=== PATIENT | male | born 1955 | race Two or more races ===

== ENCOUNTER 2024-11-21 13:17 | Inpatient (IN) | payer MEDICAID ==
[~2024-11-21] VITALS: Ht 170.2 cm; Wt 95.0 kg
--- NOTE | 2024-11-21 13:35 | ELECTROCARDIOGRAPH REPORT ---
[facility], [place] Test Date: 2024-11-21 Test Time: 13:19:24 Pat Name: XOCHILT TORRES Department: EMERGENCY ROOM Room: ED 2 Gender: M Tax Compliance Manager: JESSY : 1955 Requested By: FELECIA MAYEN Order Number: [id number] Reading MD: Dr. Avinash Child Measurements Intervals [place] Rate: 93 P: 59 SD: 211 QRS: 55 QRSD: 106 T: 38 QT: 355 QTc: 442 Interpretive Statements Sinus rhythm Borderline prolonged SD interval Probable left atrial enlargement Electronically Signed On 11-21-2024 17:20:[address] Avinash Child Please click the below link to view image of tracing.
[2024-11-21 14:45] LABS: BASOPHILS % (AUTO) 0.5 % (0-1); HEMATOCRIT 40.6 % (42.0-52.0); LYMPHOCYTES # (AUTO) 1.7 X10'3 (1.1-4.8); LYMPHOCYTES % (AUTO) 35.1 % (21-51); MEAN CORPUSCULAR HEMOGLOBIN 23.8 PG (27.0-31.0); MEAN CORPUSCULAR HGB CONC 32.1 g/dL (33.0-36.5); MEAN CORPUSCULAR VOLUME 74.1 FL (78-98); MEAN PLATELET VOLUME 8.4 FL (7.4-10.4); MONOCYTES # (AUTO) 0.5 X10'3 (0-0.9); MONOCYTES % (AUTO) 9.7 % (2-12); NEUTROPHILS # (AUTO) 2.6 X10'3 (1.8-7.7); NEUTROPHILS % (AUTO) 53.7 % (42-75); PLATELET COUNT 229 X10'3 (140-440); RED BLOOD COUNT 5.47 X10'6 (4.70-6.10); RED CELL DISTRIBUTION WIDTH 15.1 % (11.5-14.5); WHITE BLOOD COUNT 4.9 X10'3 (4.5-11.0)
[2024-11-21 15:05] LABS: ALANINE AMINOTRANSFERASE 22 U/L (12-78); ALBUMIN 3.6 G/DL (3.4-5.0); ALBUMIN/GLOBULIN RATIO 0.8 (1.1-1.5); ALKALINE PHOSPHATASE 74 IU/L (46-116); ANION GAP 8 (8-16); ASPARTATE AMINO TRANSFERASE 18 U/L (10-37); BILIRUBIN,TOTAL 0.3 MG/DL (0.1-1.0); BLOOD UREA NITROGEN 9 MG/DL (7-18); BUN/CREATININE RATIO 9.7 (10.0-20.0); CALCIUM 8.6 MG/DL (8.5-10.1); CHLORIDE 100 MMOL/L (99-107); CREATININE 0.93 MG/DL (0.60-1.10); GLUCOSE 109 MG/DL (70-104); POTASSIUM 3.9 MMOL/L (3.5-5.1); SODIUM 136 MMOL/L (135-145); TOTAL CARBON DIOXIDE 28.1 MMOL/L (24-32); eCRCL 72 ML/MIN; eGFR 81 ML/MIN
[2024-11-21 15:10] LABS: PRO BRAIN NATRIURETIC PEPTIDE < 30 PG/ML (0-125)
[2024-11-21] MEDS ORDERED: AMLO-708 PO (15:18)
[2024-11-21] MEDS ORDERED: TELM40TA8 PO (15:18)
--- NOTE | 2024-11-21 15:19 | RADIOLOGY REPORT ---
CHEST RADIOGRAPH Indication: CP Technique: Single frontal view of the chest was obtained Comparison: None FINDINGS: Lines and Tubes: None Lungs: No focal consolidation. Pleura: No effusion. No pneumothorax. Cardiomediastinal contours: Unremarkable Bones: No acute osseous abnormality. IMPRESSION: No acute cardiopulmonary disease.
--- NOTE | 2024-11-21 15:30 | Physician Documentation ---
History of Present Illness ~ Chief Complaint: Chest Pain Stated Complaint: CP Time Seen by MD: 13:20 Source: patient, family Mode of Arrival: EMS HPI 69-year-old male history of hypertension presenting for 7-10 days of left shoulder discomfort. No history of tobacco use, no alcohol use otherwise healthy no prior history of similar symptoms. He reports pain in his left shoulder described as an achy sensation worsened with movements. No shortness of breath no cough no abdominal pain no fevers no lower extremity edema. No cardiopulmonary history. Evaluation was initially started with human resources records clerk however patient's family arrived and the patient has specifically requested that his family provide interpretation He presented to [facility] where he had chest x-ray performed, left shoulder x-ray, troponin which was elevated at 0.29. EKG nonischemic. He received 324 of aspirin, 0.4 mg sublingual nitroglycerin, 5000 units heparin Medication Reconciliation Allergies: Coded Allergies: No Known Allergies (Unverified , 11/21/24) Scheduled Amlodipine Besylate (Amlodipine Besylate), 1 TAB PO DAILY, (Reported) Telmisartan (Telmisartan), 1 TAB PO DAILY, (Reported) Past Medical History Smoking Status: Never smoker Review of Systems All Other Systems at this time: Reviewed and Negative Constitutional: Denies: fever Respiratory: Denies: shortness of breath Cardiovascular: Denies: chest pain Gastrointestinal: Denies: abdominal pain Physical Exam Vital Signs: Heart Rate: 90, Respiratory Rate: 17, BP: 135/81, Pulse Oximetry: 96, Weight: 95.000 Oxygen Flow Rate: 0 Physical Exam Well-appearing no distress Non diaphoretic Moist mucous membranes No JVD Cardiopulmonary clear to auscultation bilaterally no murmurs no wheezing rhonchi or rales Abdomen soft nontender normal bowel sounds no palpable mass Lower extremity no edema Progress Results/Orders Reviewed/noted all lab results: Yes Results/Orders Orders - FELECIA MAYEN MD Chest,Single View (11/21/24 13:32) Monitor (11/21/24 13:32) Saline Lock (11/21/24 13:32) Oxygen (11/21/24 13:32) Electrocardiogram (11/21/24 13:32) Page Hospitalist (11/21/24 15:37) Fill Out Med Reconciliation (11/21/24 15:37) Completed Orders - FELECIA MAYEN MD Chest,Single View (11/21/24 13:32) Cbc/Diff (11/21/24 13:32) PBNP (11/21/24 13:32) Electrocardiogram (11/21/24 13:32) CMP (11/21/24 13:32) Hs Troponin I W Calculations (11/21/24 13:32) Hs Troponin I W Calculations (11/21/24 15:32) Hs Troponin I W Calculations (11/21/24 16:32) Pt Inr (11/21/24 15:36) PTT (11/21/24 15:36) Heparin 25,000 Unit/250ml Bag (Heparin 2 (11/21/24 15:40) Heparin 10,000 Unit/Ml 1ml (Heparin 10,0 (11/21/24 15:40) No Initial Heparin Drip Bolus (No Initia (11/21/24 15:40) Nitroglycerin Top Ointment (Nitro-Bid Ud (11/21/24 15:40) Message To Nursing (11/21/24 16:10) Atorvastatin Tablet (Lipitor Tablet) (11/21/24 16:25) Hgb A1c (11/21/24 14:28) Vital Signs 11/21/24 11/21/24 11/21/24 13:21 14:25 15:16 Pulse 88 90 Resp 20 15 17 B/P (MAP) 150/86 135/81 (99) Pulse Ox 97 96 O2 Flow Rate 0 Laboratory Tests Test 11/21/24 14:28 11/21/24 15:24 11/21/24 16:22 White Blood Count 4.9 Red Blood Count 5.47 Hemoglobin 13.0 L Hematocrit 40.6 L Mean Corpuscular Volume 74.1 L Mean Corpuscular Hemoglobin 23.8 L Mean Corpuscular Hemoglobin Concent 32.1 L Red Cell Distribution Width 15.1 H Platelet Count 229 Mean Platelet Volume 8.4 Neutrophils (%) (Auto) 53.7 Lymphocytes (%) (Auto) 35.1 Monocytes (%) (Auto) 9.7 Eosinophils (%) (Auto) 1.0 Basophils (%) (Auto) 0.5 Neutrophils # (Auto) 2.6 Lymphocytes # (Auto) 1.7 Monocytes # (Auto) 0.5 Eosinophils # (Auto) 0.0 Basophils # (Auto) 0.0 CBC Comment Prothrombin Time 10.7 INR International Normalized Ratio 1.0 Activated Partial Thromboplast Time 39 H Coagulation Comments Sodium Level 136 Potassium Level 3.9 Chloride Level 100 Carbon Dioxide Level 28.1 Anion Gap 8 Blood Urea Nitrogen 9 Creatinine 0.93 Estimated GFR/1.73 m2 81 BUN/Creatinine Ratio 9.7 L Glucose Level 109 H Hemoglobin A1c 6.1 Calcium Level 8.6 Total Bilirubin 0.3 Aspartate Amino Transf (AST/SGOT) 18 Alanine Aminotransferase (ALT/SGPT) 22 Alkaline Phosphatase 74 Troponin I High Sensitivity 355 *H 355 *H 345 *H Pro-B-Type Natriuretic Peptide < 30 Total Protein 8.0 Albumin 3.6 Globulin 4.4 H Albumin/Globulin Ratio 0.8 L Chemistry Comments Troponin I High Sens Percent Delta 0 2 Troponin I Hi Sens Absolute Change 0 -10 EKG/XRAY/CT/US/VASC/MRI EKG : Additional Comment EKG independently interpreted by myself time 1:19 p.m. indication symptomatic patient normal sinus rhythm with first-degree heart block, normal axis normal intervals no ST or T-wave abnormalities Heart Score: Heart Score Response (Comments) Value History Moderate Suspicious 1 EKG Normal 0 Age >65 2 Risk Factors 1 or 2 risk factors 1 Troponin 1-2 x's Normal limit 1 Total 5 Medical Decision Making Additional info obtained from: family Additional Information Pulmonary embolism, acute coronary syndrome, aortic dissection other causes of chest pain Departure Disposition: ADMITTED INPATIENT Admitted to Inpatient Unit: to hospitalist Impression: Primary Impression: NSTEMI (non-ST elevated myocardial infarction) Additional Impression Text 69-year-old male history of hypertension presenting for 1 week of left shoulder discomfort found to have an NSTEMI at outside emergency department. He was given aspirin and heparin bolus transferred to our facility. His vitals are unremarkable. His EKG was nonischemic. Troponin elevated. Plan for admission for acute coronary syndrome Referrals: NO PRIMARY CARE PROVIDER (PCP) Critical Care Note Total Time (mins): 30 Critical Care Note The very real possibility of a deterioration of this patient's condition required the highest level of my preparedness for sudden, emergent intervention. I provided critical care services, which included medication orders, frequent reevaluations of the patient's condition and response to treatment, ordering and reviewing test results, and discussing the case with various consultants. Excludes time spent performing separately billable procedures. The critical care time associated with the care of the patient was 30 minutes in the management of acute NSTEMI Signature Scribe Signature: jihan Attestation: FELECIA Rivas MD November 21, 2024 15:30
[2024-11-21] MEDS ORDERED: heparin 10,000 units/1 ML INJ IV PRN (15:40)
[2024-11-21] MEDS: HEPARIN DRIP INITAL BOLUS --- DO NOT GIVE/ORDER MC ONE (15:54)
[2024-11-21 16:13] LABS: APTT 39 SECONDS (22-32); PROTHROMBIN TIME 10.7 SECONDS (9.0-12.0)
[2024-11-21] MEDS: nitroGLYCERIN 1gm ointment UD TP ONE (16:20)
[2024-11-21] MEDS: MESSAGE TO NURSING IV ONE ×2 (16:20→23:26)
[2024-11-21] MEDS ORDERED: acetaminophen 650mg rectal suppository RC PRN (16:30)
[2024-11-21] MEDS ORDERED: magnesium sulf-water 4G/100mL 100 ML IV PRN (16:30)
[2024-11-21] MEDS ORDERED: nitroGLYCERIN 0.4mg SUBLingual tab SL PRN ×3 (16:30→17:20)
[2024-11-21] MEDS ORDERED: aminophylline 500mg/20ml vial IV PRN ×2 (16:30→17:20)
[2024-11-21] MEDS ORDERED: HYDROcodone/acetaminophen 10/325mg tab PO PRN (16:30)
[2024-11-21] MEDS ORDERED: magnesium sulf-water 2g/50mL 50 ML IV PRN (16:30)
[2024-11-21] MEDS ORDERED: magnesium Cl slow-release 64mg tablet PO PRN (16:30)
[2024-11-21] MEDS ORDERED: potassium Cl 40MEQ/1/2NS 520ml 520 ML IV PRN (16:30)
[2024-11-21] MEDS ORDERED: mag hydrox/Alum hydrox/simeth 30ml oral suspension PO PRN (16:30)
[2024-11-21] MEDS ORDERED: metoprolol tartrate 1mg/ml inj IV PRN ×2 (16:30→17:20)
[2024-11-21] MEDS ORDERED: ondansetron/PF 4mg/2ml inj IV PRN (16:30)
[2024-11-21] MEDS ORDERED: acetaminophen 325mg tablet PO PRN ×2 (16:30)
[2024-11-21] MEDS ORDERED: magnesium hydroxide 30ml (MOM) UD suspension PO PRN (16:30)
[2024-11-21] MEDS ORDERED: bisacodyl 10mg suppository rectal RC PRN (16:30)
[2024-11-21] MEDS ORDERED: diphenhydrAMINE 25mg capsule PO PRN (16:30)
[2024-11-21] MEDS ORDERED: HYDROcodone/acetaminophen 5mg/325mg tablet PO PRN (16:30)
[2024-11-21] MEDS ORDERED: potassium Cl 20 mEq SR tablet PO PRN ×2 (16:30)
[2024-11-21] MEDS: heparin 25,000 UNIT/250ml bag 250 ML IV PRN (16:33)
[2024-11-21] MEDS: PERFLUTREN PROTEIN-A MICROSPHR (Optison) 0.22 MG/ML 3ML VIAL IV ONE (16:45)
[2024-11-21 17:04] LABS: HEMOGLOBIN A1C 6.1 % (4.5-6.2)
[2024-11-21] MEDS: atorvastatin 20mg tablet PO ONE (17:05)
[2024-11-21] MEDS ORDERED: regadenoson 0.4mg/5ml syringe IV PRN (17:20)
--- NOTE | 2024-11-21 18:07 | HISTORY AND PHYSICAL-Residence ---
History & Physical Providers to CC Resident Creating Document: CLAUDIO YUN RES ~ History of Present Illness Reason for Admit\\Complaint: chest pain History of Present Illness Patient is a 69-year-old male with a history of hypertension and PUD was transferred from [facility] for further evaluation and management of NSTEMI. Patient was presented to the transferring facility for left shoulder discomfort for the past 10 days. He describes the pain as achy in nature, radiating down to his left upper quadrant, aggravated with movement and with no relieving factors. he adds that he was "experiencing an upset stomach-like feeling". He denies any shortness of breath, diaphoresis, nausea, vomiting or fever. Patient lives in [facility] with his family, denies smoking cigarettes, consuming alcohol, or using recreational drugs. His PCP is Dr. Pisano. He came from [facility] seven months ago, and has not had access to primary care doctor. Allergies: Coded Allergies: No Known Allergies (Unverified , 11/21/24) Home Medications Home Medications Active Reported Telmisartan 40 Mg Tablet 1 Tab PO DAILY Amlodipine Besylate 10 Mg Tablet 1 Tab PO DAILY Past Medical History Past Medical History Hypertension Past Surgical History Surgical History Comment No surgeries Past Social History Social History Comment Patient lives in [facility] with his family, denies smoking cigarettes, consuming alcohol, or using recreational drugs. His PCP is Dr. Pisano. He came from [facility] seven months ago, and has not had access to primary care doctor. ROS All Other Systems: Reviewed and Negative ROS As stated above in the HPI, otherwise all systems are reviewed and negative. Constitutional: Denies: fever Respiratory: Denies: shortness of breath Cardiovascular: Denies: chest pain Gastrointestinal: Denies: abdominal pain Exam Vitals: Vital Signs Date Time Temp Pulse Resp B/P (MAP) Pulse Ox O2 Delivery O2 Flow Rate FiO2 11/21/24 16:40 86 17 135/85 (102) 95 0 General: Awake and Alert, no acute distress. HEENT: Conjunctiva pink, Sclera clear, Mucus Membranes moist. Neck: Supple without masses and tenderness. Resp: Unlabored. Lungs clear to auscultation bilaterally. Heart: Regular Rate and rhythm, normal S1 and S2 without murmur, rub or gallop. Abdomen: Soft and non tender no organomegaly Extremities: No cyanosis,clubbing or edema. Skin: Warm and Dry. Diagnostic Data Last Recorded Lab Results: 11/21/24 1428 11/21/24 1428 Diagnostic Data: Laboratory Tests Test 11/21/24 14:28 Prothrombin Time 10.7 SECONDS (9.0-12.0) INR International Normalized Ratio 1.0 INR Activated Partial Thromboplast Time 39 SECONDS (22-32) H Coagulation Comments Advance Care Planning Advanced Care plannin - 30 Minutes Additional Plan Assessment and plan: Patient is a 69-year-old male with a history of hypertension and PUD was transferred from [facility] for further evaluation and management of NSTEMI. Atypical anginal chest pain: NSTEMI - SU Score 3 (13%) mortality Admitted to telemetry floor - Continuous cardiac monitoring Received aspirin 324 mg, NTG SL 0.4 mg, and heparin Pain management - SL NTG Continue Aspirin, atorvastatin, carvedilol, and lisinopril Continue heparin drip Follow A1C, and lipid panel Echo ordered, we will follow Lexiscan to evaluate the need for coronary angiography Cardiology consult in the morning PUD/GERD: Protonix 40 mg IV daily Will benefit from EGD outpatient DVT prophylaxis: On heparin drip Code status: Full code Claudio Yun Internal Medicine Resident Date of Service: November 21, 2024 Billing Provider: BRIAN GARCIA MD,CLAUDIO, RES November 21, 2024 18:07
[2024-11-21 18:45] VITALS: BP 154/88; PULSE 96; RESP 16; TEMP 97.5; O2SAT 96; O2SAT 97
[2024-11-21] MEDS: K and/or MAG REPLACEMENT MC SCH (20:00)
[2024-11-21] MEDS: pantoprazole 40 MG vial IV SCH (20:56)
[2024-11-21] MEDS: normal saline 1000ml 1,000 ML IV SCH (20:56)
[2024-11-21] MEDS: lisinopril 10 MG tablet PO SCH (20:57)
[2024-11-21] MEDS: carVEDilol 3.125mg tablet PO SCH (20:58)
[2024-11-21] MEDS: docusate sod 100mg capsule PO SCH (20:58)
[2024-11-21 22:00] VITALS: BP 102/60; PULSE 88; RESP 17; TEMP 98; O2SAT 95
[2024-11-22] VITALS (24 sets, daily range): BP systolic 107–172; BP diastolic 63–115; PULSE 64–99; RESP 15–20; TEMP 97.3–98.6; O2SAT 91–99
[2024-11-22 03:55] LABS: BILIRUBIN,URINE NEGATIVE (Neg); CLARITY,URINE CLEAR (Clear); COLOR,URINE YELLOW (Yellow); GLUCOSE, URINE NEGATIVE (Neg); KETONES,URINE NEGATIVE (Neg); LEUKOCYTE ESTERASE ,URINE NEGATIVE (Neg); NITRITES, URINE NEGATIVE (Neg); OCCULT BLOOD,URINE NEGATIVE (Neg); PROTEIN,URINE NEGATIVE (Neg); UROBILINOGEN,URINE 0.2 E.U/dL (0.2-1.0)
[2024-11-22 03:57] LABS: UA COLLECTION TYPE CLN CATCH MIDSTREAM
[2024-11-22 05:43] LABS: BASOPHILS # (AUTO) 0.1 X10'3 (0-0.2); BASOPHILS % (AUTO) 0.6 % (0-1); EOSINOPHILS # (AUTO) 0.1 X10'3 (0-0.9); EOSINOPHILS % (AUTO) 1.7 % (0-6); HEMATOCRIT 36.9 % (42.0-52.0); LYMPHOCYTES # (AUTO) 2.4 X10'3 (1.1-4.8); LYMPHOCYTES % (AUTO) 30.8 % (21-51); MEAN CORPUSCULAR HGB CONC 32.4 g/dL (33.0-36.5); MEAN CORPUSCULAR VOLUME 74.1 FL (78-98); MEAN PLATELET VOLUME 8.7 FL (7.4-10.4); MONOCYTES # (AUTO) 0.8 X10'3 (0-0.9); MONOCYTES % (AUTO) 9.9 % (2-12); NEUTROPHILS # (AUTO) 4.5 X10'3 (1.8-7.7); PLATELET COUNT 221 X10'3 (140-440); RED BLOOD COUNT 4.99 X10'6 (4.70-6.10); WHITE BLOOD COUNT 7.9 X10'3 (4.5-11.0)
[2024-11-22 05:54] LABS: ANION GAP 8 (8-16); BLOOD UREA NITROGEN 10 MG/DL (7-18); BUN/CREATININE RATIO 8.8 (10.0-20.0); CALCIUM 8.2 MG/DL (8.5-10.1); CHLORIDE 103 MMOL/L (99-107); CHOL/HDL RATIO 3.1 (0.00-4.99); CHOLESTEROL 195 MG/DL (0-200); CREATININE 1.14 MG/DL (0.60-1.10); GLUCOSE 109 MG/DL (70-104); HDL CHOLESTEROL 62 MG/DL (35-60); LDL CHOLESTEROL 121 MG/DL (50-100); MAGNESIUM 2.3 MG/DL (1.5-2.4); PHOSPHORUS 3.7 MG/DL (2.3-4.5); POTASSIUM 3.8 MMOL/L (3.5-5.1); SODIUM 138 MMOL/L (135-145); TOTAL CARBON DIOXIDE 27.1 MMOL/L (24-32); TRIGLYCERIDES 62 MG/DL (20-135); eCRCL 59 ML/MIN; eGFR 64 ML/MIN
[2024-11-22] MEDS: MESSAGE TO NURSING IV ONE ×2 (06:56→12:50)
[2024-11-22] MEDS: atorvastatin 20mg tablet PO SCH (07:11)
[2024-11-22] MEDS: aspirin 81mg, enteric-coated 1 TAB TABLET.DR PO SCH (07:22)
[2024-11-22] MEDS ORDERED: aspirin 81mg, enteric-coated 1 TAB TABLET.DR PO SCH (09:00)
[2024-11-22] MEDS: regadenoson 0.4mg/5ml syringe IV PRN (09:45)
--- NOTE | 2024-11-22 12:25 | RADIOLOGY REPORT ---
Reason for study/Clinical History: cp Comparison Study: None Myocardial Perfusion Study with SPECT Technique: The patient received an intravenous injection of 8.6 mCi of technetium-99m Sestamibi whi vidya at rest. After a short delay, SPECT tomographic images of the heart were obtained. The patient rosie blair went to the stress lab where they received an intravenous Lexiscan utilizing standard protocol. 32.0 mCi of technetium-99m Sestamibi was injected intravenously immediately after the start of the infusion. Gated SPECT tomographic images of the heart were acquired and processed. Findings: Rotating planar images show no significant attenuation artifact. The left ventricular size is within normal limits. Reversible defect is present in the inferior/ lateral wall. The left ventricular ejection fraction is 61%. (normal greater than 50%) Impression: Reversible defect is present in the inferior/ lateral wall. This may represent artifact versus ischem ia. Clinical correlation advised. The left ventricular ejection fraction is 61%.
[2024-11-22] MEDS ORDERED: LIDOcaine 1% (10mg/ml) 2ml vial ONE (14:32)
[2024-11-22] MEDS ORDERED: heparin 1,000unit/ml 10ml vial 10 ML ONE ×2 (14:33→15:34)
[2024-11-22] MEDS ORDERED: midazolam 1 mg/ML 2ml injection ONE (14:33)
[2024-11-22] MEDS ORDERED: iohexol 350MG/ML 100ml bottle IV ONE ×2 (14:33→15:30)
[2024-11-22] MEDS ORDERED: fentaNYL/PF 50MCG/1 ML 2ML syringe ONE (14:33)
[2024-11-22] MEDS ORDERED: nitroGLYCERIN 500mcg/5mL D5W 5 ML IV ONE (14:33)
[2024-11-22] MEDS ORDERED: verapamil 2.5 mg/ml inj IV ONE (14:33)
[2024-11-22] MEDS ORDERED: LIDOcaine 1% 30ml preserv. free vial ONE (15:02)
[2024-11-22] MEDS ORDERED: ticagrelor 90mg tablet ONE (15:34)
--- NOTE | 2024-11-22 15:40 | CONSULTATION REPORT ---
Consult Providers to CC CC: JEFFERSON ACOSTA MD Consult Consultation Chief complaint: I was emergently asked to review the patient's coronary angiography in the cardiac catheterization lab and assess the feasibility and advisability of surgical coronary revascularization versus PCI. History of present illness: This 69-year-old man of [place] descentwith early diabetes, who has no identifiable primary care provider, presented with stuttering angina yesterday and ruled in for non ST segment elevation infarction with mildly elevated, but flat, high sensitivity troponins. He underwent a stress test today which showed inferolateral ischemia and Dr. Jefferson Acosta brought the patient to the cardiac catheterization lab. He identified a chronic total occlusion at the junction of the proximal and middle thirds of the right coronary artery and a high-grade stenosis jeopardizing the mid lateral and posterolateral circumflex obtuse marginal system. The left anterior descending coronary artery does not have a proximal for even midvessel stenosis but there is plaque in the distal portion of the vessel culminating in an apical high-grade stenosis. Allergies, medications, Past medical history, family history, personal & social history were reviewed as charted in the EMR. Review of systems could not be performed because the patient is currently on the cardiac catheterization table, nor could a physical examination be performed. Assessment and plan: 1. Because of the apical high-grade stenosis, any graft placed just proximal to that will not have any runoff in either direction. Moreover, in the absence of a high-grade proximal left anterior descending coronary stenosis, the indications and goals for surgical coronary revascularization are less defined. 2. As stenting of the circumflex coronary system appears feasible to Dr. Acosta, this will not only address the area of inducible ischemia identified with stress testing, it will additionally support [id number] collaterals to the occluded right coronary system. 3. The distal/apical left anterior descending coronary disease can be treated medically. I very much appreciate this consultation opportunity. Visit Coding Cardiology Date of Service: November 22, 2024 Billing Provider: GABRIELA SKELTON Jr., MD Cardiology Evaluation and Tiffany: CONSULT ONLY Cardiology Consultation Codes: 50554-[id number] CONSULT <45MIN GABRIELA SKELTON Jr., MD November 22, 2024 15:40
[2024-11-22] MEDS ORDERED: atropine 0.1mg/ml 10ml syringe ONE (15:42)
--- NOTE | 2024-11-22 16:32 | CARDIAC CATH REPORT ---
Post Cath Report Providers to CC CC: JEFFERSON ACOSTA MD ~ Date of Procedure: November 22, 2024 Pre-Procedure Diagnosis: NSTEMI History: AMI, Htn CCS Anginal Class: IV [facility] Functional Class: II Procedure Preformed: Left Heart Cath, PTCA / Stent Post Procedure DX Same?: Yes Findings Findings: Procedure Date: 11/22/24 Procedure(s): 1. Selective Right and Left Coronary Angiography 2. Percutaneous coronary intervention of the left circumflex coronary artery with two overlapping stents, a 3.0 mm x 38 mm Dick Shoshone and a 3.0 mm x 18 mm Vanderwagen Shoshone 3. Right Femoral Angiography 4. PerClose Closure Device placement to achieve hemostasis 5. Conscious Sedation Monitoring for 60 minutes Pre-Cardiac Catheterization Diagnosis: NSTEMI Post-Cardiac Catheterization Diagnosis: Severe triple vessel disease Community Specialist(s): Jefferson Acosta MD ([facility]) Indication: Mr. Hagen is a 69 year old [place] male with a past medical history significant for hypertension and pre-diabetes who presented with chest/neck/arm pain that had been ongoing for about 1 week. He was transferred from an outside facility due to an NSTEMI. His Trop HS was noted to be in the 300s. He underwent a lexiscan stress test that showed inferior and lateral reversible ischemia. The patient is being brought to the cardiac hot plate plywood press laborer for further evaluation of their coronary anatomy with a left heart cath and possible percutaneous coronary intervention. Procedure Details: Informed consent was obtained. Both groins were prepped and draped in the usual manner. The right femoral area was anesthetized with lidocaine, 2%, local infiltration. The right femoral artery was entered with a Cook needle using the modified Seldinger technique and a 6 F sheath was inserted. Catheter exchanges were made over the wire. Selective left and right coronary angiograms were obtained in multiple projections with JL4 and JR4 catheters respectively. Pressures were recorded in the LV and aorta. Following the diagnostic procedure, the CT Surgeon, Dr. Mccoy, was contacted and came to the hot plate plywood press laborer to review the films. It was felt that his LAD lesion was too distal for any graft and since there was no proximal or mid LAD lesion, it was felt that the patient would best be served by PCI. Given the fact that the patient had only inferior/inferolateral reversible ischemia, it was felt that the LCx would be stented and since the RCA was a HONING JOB SETTER, that would be left for medical management. A XBC 4.0 guiding catheter was used to selectively cannulate the left coronary artery. A Lumate Runthrough wire was advanced through the lesion and parked distal to the lesion. The lesion was predilated with 2.5 mm x 20 mm Trek balloon at 12 karan. A 3.0 mm x 38 mm Vanderwagen Shoshone drug eluting stent was placed across the mid to distal aspect of the lesion and deployed at 13 karan. A 3.0 mm x 18 mm Vanderwagen Shoshone drug eluting stent was then positioned across the proximal portion of the lesion with the distal aspect of the stent overlapping the proximal portion of the recently deployed stent. The stent was deployed at high pressure of 16 karan and then the stent balloon was used to post dilated the overlap section of stent at 16 karan. The lesion was reduced from 80-90% to 0%. Pre-intervention SU Flow was noted to be SU 2. Post intervention the SU flow was noted to be SU 3. The patient tolerated the procedure well. There were no complications. Anticoagulation used during procedure was with heparin. At the termination of the procedure, all the wires and catheters were removed. A femoral angiography was performed to assess the access site and suitability for a closure device to achieve hemostasis. It was determined that the entry point was suitable for a closure device. A Perclose device was used to achieve hemostasis. The patient was given conscious sedation and monitored for a total of 60 minutes. Catheters Used: 1. 6 Slovak XBC 4 guide 2. 6 Slovak JL4 3. 6 Slovak JR4 All catheters were exchanged over the wire. CORONARY ANGIOGRAM: Left Main: Patent vessel that distally bifurcates into a LAD and LCx Left Anterior Descending: Moderate caliber vessel. The proximal and mid LAD has mild luminal irregularities. There is noted severe disease of the moderate caliber diagonal branch. The distal and apical LAD have noted severe (80-90%) diffuse disease. The septals of the LAD supply left to right collaterals to the distal RCA. Left Circumflex: Moderate to large caliber vessel with severe (80-90%) diffuse disease from the proximal to mid portion of the vessel. Right Coronary Artery: Dominant vessel that has a noted HONING JOB SETTER in the mid portion of the vessel. There are noted bridging collaterals from the right to right and also left to right collaterals that fills the distal RCA. Left Ventricular Angiography: Not performed. Echo showed an EF of 65-70%. Hemodynamics: Please refer to hot plate plywood press laborer flow sheet. Valve Disease: None per echo. Percutaneous Coronary Intervention (PCI): A XBC 4.0 guiding catheter was used to selectively cannulate the left coronary artery. A Lumate Runthrough wire was advanced through the lesion and parked distal to the lesion. The lesion was predilated with 2.5 mm x 20 mm Trek balloon at 12 karan. A 3.0 mm x 38 mm Dick Shoshone drug eluting stent was placed across the mid to distal aspect of the lesion and deployed at 13 karan. A 3.0 mm x 18 mm Vanderwagen Shoshone drug eluting stent was then positioned across the proximal portion of the lesion with the distal aspect of the stent overlapping the proximal portion of the recently deployed stent. The stent was deployed at high pressure of 16 karan and then the stent balloon was used to post dilated the overlap section of stent at 16 karan. The lesion was reduced from 80-90% to 0%. Pre- intervention SU Flow was noted to be SU 2. Post intervention the SU flow was noted to be SU 3. The patient tolerated the procedure well. There were no complications. Anticoagulation used during procedure was with heparin. Complications: None Closure Device: Perclose Impression: 1. Right dominant system. 2. Severe triple vessel disease as described above with a HONING JOB SETTER of the RCA, severe diffuse disease of the proxiomal to mid LCx, and severe disease of the distal/apical LAD. 3. Successful PCI of the LCx with two overlapping Vanderwagen Shoshone stents, a 3.0 mm x 18 mm proximally and a 3.0 mm x 38 mm distally. 4. Conscious sedation monitoring for 60 minutes. Discussion/Recommendations: -Following the diagnostic procedure, the CT Surgeon, Dr. Mccoy, was contacted and came to the hot plate plywood press laborer to review the films. It was felt that his LAD lesion was too distal for any graft and since there was no proximal or mid LAD lesion, it was felt that the patient would best be served by PCI. Given the fact that the patient had only inferior/inferolateral reversible ischemia, it was felt that the LCx would be stented and since the RCA was a HONING JOB SETTER, that would be left for medical management. -Routine post cath orders. -Transfer to the floor. -Dual antiplatelet therapy with Brilinta and ASA for at least one year, then ASA indefinitely. -Continue with medical management. -Aggressive lifestyle and risk factor modifications were stressed to the patient in detail. Dominance: Right Moderate Sedation: Yes Complications: None Estimated Blood Loss: less than 5 cc Treatment Plan: PTCA / STENT PCI Patients Priority: Urgent Condition on leaving Prototype Deicer Assembler: Stable JEFFERSON ACOSTA MD November 22, 2024 16:32
--- NOTE | 2024-11-22 16:37 | CONSULTATION REPORT ---
CATHYGEOVANY Mikel COMMERCIAL PORTFOLIO MANAGER 11/22/24 1637: History of Present Illness Providers to CC CC: MARTHA CARABALLO MD ~ Reason for Admit\Admit Dx: Cardiology consultation History of Present Illness This is a 69-year-old male who presented with chest pain. He does not speaking Uzbek however speaks greenlandic and able to speak with Dr. Acosta directly. This past medical history that is significant for hypertension. Denies other medical history. Denies past surgeries. He states chest pain in his left chest that radiates down his left arm. Pain ongoing for about 10 days. No shortness a breath. Allergies: Coded Allergies: No Known Allergies (Unverified , 11/21/24) Home Medications Home Medications Active Reported Telmisartan 40 Mg Tablet 1 Tab PO DAILY Amlodipine Besylate 10 Mg Tablet 1 Tab PO DAILY Past Medical History Medical History Comment Hypertension Past Surgical History Surgical History Comment Noncontributory Past Social History Social History Comment Does not smoke, drink alcohol or use drugs. Physical Exam Last Vital Signs Recorded: RN Vital Signs have been reviewed: Yes, Temperature: 98.6, Source: Oral, Heart Rate: 68, Respiratory Rate: 20, BP: 143/115, Pulse Oximetry: 97, Weight: 95.000 Physical Exam General: Awake, alert, oriented. No apparent distress Neck: Supple. Normal range of motion. No JVD Respiratory: Lungs are clear to auscultation bilaterally. No respiratory distress. Chest: Normal shape and size. No accessory muscle use. Cardiovascular: Regular rate and rhythm. S1-S2. No murmur, gallop, rub. Extremities: No lower extremity edema, cyanosis or clubbing. Neurologic: Alert and oriented x4. Nonfocal Psychiatric: Normal mood and affect. Skin: Normal color. Warm and dry. Review of Systems ROS Review of systems negative except documented in HPI. Results Echocardiogram Echocardiogram Preliminary echocardiogram with LVEF 70%. No wall motion abnormalities. Cardiac Stress Test Cardiac Stress Test Ordering Physician: BRIAN GARCIA MD Exam: NM MYRTLE SCAN Reason for study/Clinical History: cp Comparison Study: None Myocardial Perfusion Study with SPECT Technique: The patient received an intravenous injection of 8.6 mCi of technetium-99m Sestamibi while at rest. After a short delay, SPECT tomographic images of the heart were obtained. The patient then went to the stress lab where they received an intravenous Lexiscan utilizing standard protocol. 32.0 mCi of technetium-99m Sestamibi was injected intravenously immediately after the start of the infusion. Gated SPECT tomographic images of the heart were acquired and processed. Findings: Rotating planar images show no significant attenuation artifact. The left ventricular size is within normal limits. Reversible defect is present in the inferior/ lateral wall. The left ventricular ejection fraction is 61%. (normal greater than 50%) Impression: Reversible defect is present in the inferior/ lateral wall. This may represent artifact versus ischemia. Clinical correlation advised. The left ventricular ejection fraction is 61%. Electronically Signed by:LEMUEL MOHAMUD MD Date & Time: 11/22/24 1223 Diagram Lab Result Diagram: 11/22/24 0505 11/22/24 0505 Assessment/Plan Additional Plan This is a 69-year-old male who presented with chest pain. The following is his problem list: NSTEMI Stress test with inferolateral defect Discussed cardiac catheterization. Risks, benefits and alternatives reviewed. Patient and his family had the opportunity to ask questions and wished to proceed. He has been taken with Dr. Acosta. --start metoprolol 25 mg daily --start high-intensity statin. LDL is 121. Goal LDL less than 55. --aspirin 81 mg daily --antiplatelet agent per Dr. Acosta Supervising MD Supervising Physician: KRYSTYNA Samayoa MD 11/22/242002: History of Present Illness Providers to CC CC: MARTHA CARABALLO MD Allergies: Coded Allergies: No Known Allergies (Unverified , 11/21/24) Results Diagram Lab Result Diagram: 11/22/24 0505 11/22/24 0505 Assessment/Plan Additional Plan Patient seen and examined. Agree with note by COMMERCIAL PORTFOLIO MANAGER. The patient was admitted with an NSTEMI (high sensitivy trops of 300) and a positive stress test with noted inferior and lateral wall reversible ischemia. Coronary angiography was performed and showed severe TVCAD with a DISABILITY BENEFITS SPECIALIST of the RCA, severe diffuse and long segment disease of the LCx and severe distal and apical LAD disease. Given the severe TVCAD, a CT Surgery consultation was obtained and the films were reviewed by the CT Surgeon. Given that the LAD disease was distal and apical, it was felt that the patient would best be served with PCI. As the ischemia was in the RCA/LCX territory, the patient underwent PCI of the LCx with a total of 2 stents and the RCA will be treated medically as it is a DISABILITY BENEFITS SPECIALIST that is well collateralized. The findings of the cath and intervention were discussed in detail with the patient and his attendants. Would continue with DAPT with ASA and Brilinta for 1 year. Also continue with high dose statin and further lifestyle and risk factor modification. Pending clinical stability, he can be discharged to home in the AM with outpatient cardiology follow-up. GEOVANY MORGAN NP November 22, 2024 16:37 KRYSTYNA ACOSTA MD November 22, 2024 20:03
--- NOTE | 2024-11-22 16:38 | CARDIOLOGY REPORT ---
APPROVED REPORT EXAM: Comprehensive 2D, Doppler, and color-flow Echocardiogram. Patient Location: ED2 Blood Pressure: 135/85 mmHg Heart Rate: 93 bpm Rhythm: NSR Indications Chest Pain SOB Buying Intern unknown No previous echo 2D Dimensions LA Diam4.4 cm IVSd 1.2 (0.7-1.1cm) LVDd 4.5 cm PWd 1.2 (0.7-1.1cm) IVSs 1.7 (0.8-1.2cm) LVDs 2.7 (2.5-4.0cm) Aortic Root(2D) 3.3 cm PWs 1.6 (0.8-1.2cm) LVOT Diameter 2.12 (1.8-2.4cm) LVEF(%) 71.7 (>50%) Ao Asc Diam.3.64 cmIVC 12.28 mm FS (%) 40.7 % SV 65.6 ml CO 6.6 L/min M-Mode Dimensions MV EPSS 0.4 (<0.5cm) Aortic Valve AoV Peak Dane. 167.4 cm/s AoV VTI 26.1 cm AO Peak GR. 11.2 mmHg AO Mean GR. 6 mmHg LVOT VTI 21.72 cm LVOT Peak Dnae. 120.9 cm/s SARAVANAN(VTI)/BSA 2.94 cm2/m2 SARAVANAN (VTI) 2.94 cm2 Mitral Valve MV E Velocity 55.1 cm/s MV Peak Gr. 2 mmHg MV DECEL TIME 156 ms MV A Velocity 94.8 cm/s MV PHT 56 ms E/A Ratio 0.6 MVA (PHT) 3.93 cm2 MV VMax68.3 cm/s TDI Medial E' P. V 9.59 cm/s E/Medial E' 5.7 Tricuspid Valve RAP ESTIMATE 10 mmHg Pulmonary Vein S1 Velocity 48.8 cm/s D2 Velocity 33.9 cm/s PVa Lswnkmba51.4 cm/s PVa Otragstf11 msec LEFT VENTRICLE LV is normal in size with mild concentric hypertrophy. Overall systolic function is normal. LVEF is 7 0%. RIGHT VENTRICLE RV is normal size and function. ATRIA Left atrium is mildly dilated. AORTIC VALVE Trileaflet AV appears sclerotic without stenosis. Mild insufficiency. MITRAL VALVE MV is thickened with mild annular calcification and no stenosis. Trace mitral regurgitation. TRICUSPID VALVE The tricuspid valve is normal in structure. Trace tricuspid regurgitation. PULMONIC VALVE The pulmonary valve is normal in structure. Trace pulmonic regurgitation. GREAT VESSELS The aortic root is normal in size. Ascending aorta measured at 3.6 cm. The IVC is normal in size and collapses >50% with inspiration. PERICARDIUM There is no pericardial effusion. Other Information Study Quality: Adequate Conclusion LV is normal in size with mild concentric hypertrophy. Overall systolic function is normal. LVEF is 7 0%. RV is normal size and function. Left atrium is mildly dilated. Trileaflet AV appears sclerotic without stenosis. Mild insufficiency. MV is thickened with mild annular calcification and no stenosis. The tricuspid valve is normal in structure. Trace tricuspid regurgitation. The pulmonary valve is normal in structure. Trace pulmonic regurgitation. Ascending aorta measured at 3.6 cm. There is no pericardial effusion.
[2024-11-22] MEDS ORDERED: ASPI-1265 PO (16:46)
[2024-11-22] MEDS ORDERED: TICA90TA2 PO (16:54)
[2024-11-22] MEDS ORDERED: ATOR-2 PO (16:54)
[2024-11-22] MEDS: normal saline 1000ml 1,000 ML IV SCH (17:08)
--- NOTE | 2024-11-22 18:47 | PROGRESS NOTE- Residence ---
Progress Note - Resident Providers to CC Resident Creating Document: CLAUDIO YUN RES ~ Antibiotic Timeout Antibiotic Ordered?: No Subjective Patient was seen and examined at bedside. He does not report any pain. Underwent Lexiscan, coronary angiography, and stent placement. Objective Vital Signs Date Time Temp Pulse Resp B/P (MAP) Pulse Ox O2 Delivery O2 Flow Rate FiO2 11/22/24 18:05 20 135/75 (95) 95 Room Air 11/22/24 17:35 64 11/22/24 16:20 98.1 11/22/24 11:47 0 21 General: Awake and Alert, no acute distress. HEENT: Conjunctiva pink, Sclera clear, Mucus Membranes moist. Neck: Supple without masses and tenderness. Resp: Unlabored. Lungs clear to auscultation bilaterally. Heart: Regular Rate and rhythm, normal S1 and S2 without murmur, rub or gallop. Abdomen: Soft and non tender no organomegaly Extremities: No cyanosis,clubbing or edema. Skin: Warm and Dry. Result Diagram: 11/22/24 0505 11/22/24 0505 Coagulation Studies Laboratory Tests Test 11/21/24 14:28 11/22/24 11:18 11/22/24 15:58 Prothrombin Time 10.7 SECONDS (9.0-12.0) INR International Normalized Ratio 1.0 INR Activated Partial Thromboplast Time 39 SECONDS (22-32) H APTT (Heparin Protocol) 56 SECONDS (45-60) Coagulation Comments Activated Clotting Time 251 SEC (101-148) H Advance Care Planning Advanced Care plannin - 30 Minutes Assessment Assessment Patient is a 69-year-old male with a history of hypertension and PUD was transferred from [facility] for further evaluation and management of NSTEMI. Plan Plan NSTEMI - SU Score 3 (13%) mortality CAD, status post stenting Admitted to telemetry floor - Continuous cardiac monitoring Received aspirin 324 mg, NTG SL 0.4 mg, and heparin Pain management - SL NTG Continue Aspirin, atorvastatin, carvedilol, and lisinopril Continue heparin drip Follow A1C, and lipid panel Echo ordered, we will follow Lexiscan to evaluate the need for coronary angiography Cardiology consult in the morning Prediabetes: A1C 6.1 Diet & lifestyle modification discussed with patient PUD/GERD: Protonix 40 mg IV daily Will benefit from EGD outpatient November 22, 2024: Patient underwent Lexiscan which revealed reversible defect is present in the inferior/ lateral wall. Cardiology consulted, patient underwent coronary angiography. Two stents placed at left circumflex coronary artery Ticagrelor 90 mg p.o. twice daily added to current GDMT DVT prophylaxis: On heparin drip Code status: Full code Claudio Yun Internal Medicine Resident Date of Service: November 22, 2024 Billing Provider: BRIAN GARCIA MD,CLAUDIO, RES November 22, 2024 18:47
[2024-11-22] MEDS ORDERED: ticagrelor 90mg tablet PO SCH (20:00)
[2024-11-22] MEDS: ticagrelor 90mg tablet PO SCH (21:59)
[2024-11-23 02:00] VITALS: BP 126/61; PULSE 65; RESP 16; TEMP 97.7; O2SAT 96
[2024-11-23 06:00] VITALS: BP 130/75; PULSE 69; RESP 16; TEMP 98; O2SAT 98
[2024-11-23 06:50] LABS: BASOPHILS % (AUTO) 0.5 % (0-1); EOSINOPHILS # (AUTO) 0.1 X10'3 (0-0.9); EOSINOPHILS % (AUTO) 0.8 % (0-6); HEMATOCRIT 37.3 % (42.0-52.0); HEMOGLOBIN 12.2 g/dl (14.0-17.9); LYMPHOCYTES # (AUTO) 1.9 X10'3 (1.1-4.8); LYMPHOCYTES % (AUTO) 22.4 % (21-51); MEAN CORPUSCULAR HEMOGLOBIN 24.2 PG (27.0-31.0); MEAN CORPUSCULAR HGB CONC 32.7 g/dL (33.0-36.5); MEAN PLATELET VOLUME 8.6 FL (7.4-10.4); MONOCYTES # (AUTO) 0.9 X10'3 (0-0.9); MONOCYTES % (AUTO) 10.3 % (2-12); NEUTROPHILS # (AUTO) 5.7 X10'3 (1.8-7.7); PLATELET COUNT 212 X10'3 (140-440); RED BLOOD COUNT 5.05 X10'6 (4.70-6.10); RED CELL DISTRIBUTION WIDTH 14.9 % (11.5-14.5); WHITE BLOOD COUNT 8.7 X10'3 (4.5-11.0)
[2024-11-23 07:07] LABS: ALBUMIN 3.1 G/DL (3.4-5.0); ANION GAP 7 (8-16); BLOOD UREA NITROGEN 10 MG/DL (7-18); BUN/CREATININE RATIO 8.6 (10.0-20.0); CALCIUM 8.4 MG/DL (8.5-10.1); CHLORIDE 104 MMOL/L (99-107); CREATININE 1.16 MG/DL (0.60-1.10); GLUCOSE 99 MG/DL (70-104); MAGNESIUM 2.1 MG/DL (1.5-2.4); PHOSPHORUS 3.6 MG/DL (2.3-4.5); POTASSIUM 3.6 MMOL/L (3.5-5.1); SODIUM 138 MMOL/L (135-145); TOTAL CARBON DIOXIDE 26.6 MMOL/L (24-32); eCRCL 58 ML/MIN; eGFR 63 ML/MIN
[2024-11-23 08:00] VITALS: RESP 16; O2SAT 98
[2024-11-23 11:00] VITALS: BP 115/64; PULSE 67; RESP 13; TEMP 97.8; O2SAT 99
[2024-11-23] MEDS ORDERED: AMLO-708 PO (14:10)
[2024-11-23] MEDS ORDERED: PANT-47 PO (14:10)
[2024-11-23] MEDS ORDERED: TELM40TA8 PO (14:10)
[2024-11-23] MEDS ORDERED: ISOS30TA84 PO (14:13)
[2024-11-23 15:00] VITALS: BP 139/64; PULSE 66; RESP 14; TEMP 98.1; O2SAT 98
--- NOTE | 2024-11-23 17:00 | DISCHARGE SUMMARY-Residence ---
Discharge Summary Providers to CC Resident Creating Document: CLAUDIO RUDOLPH, RES ~ Discharge Summary Admission Diagnosis: NSTEMI Hospital Course DATE OF ADMISSION: November 21, 2024 DATE OF DISCHARGE: November 23, 2024 Discharge Diagnosis\\Comment: NSTEMI CAD, status post stenting x2 Prediabetes: PUD/GERD Operations\\Procedures: 1. Selective Right and Left Coronary Angiography 2. Percutaneous coronary intervention of the left circumflex coronary artery with two overlapping stents, a 3.0 mm x 38 mm [place] and a 3.0 mm x 18 mm [place] 3. Right Femoral Angiography 4. PerClose Closure Device placement to achieve hemostasis 5. Conscious Sedation Monitoring for 60 minutes Consultants: Dr. Hitchcock Complications: None Condition on DC: Stable New Medications: Aspirin (Aspirin) 81 Mg Tab.chew 1 TAB PO DAILY for 30 Days, #30 TAB 6 Refills Atorvastatin Calcium (Atorvastatin Calcium) 80 Mg Tablet 1 TAB PO DAILY for 30 Days, #30 TAB 6 Refills Isosorbide Mononitrate (Isosorbide Mononitrate Er) 30 Mg Tab.er.24h 1 TAB PO DAILY for 30 Days, #30 TAB Pantoprazole Sodium (PROTONIX tablet) 40 Mg Tablet.dr 40 MG PO DAILY for 30 Days, #30 TAB.SR Ticagrelor (Brilinta) 90 Mg Tablet 90 MG PO BID for ACUTE CORONARY SYNDROME/NSTEMI, #60 TAB 6 Refills Do not stop medication unless instructed by prescriber. Must be on aspirin as well. Continued Medications: Amlodipine Besylate (Amlodipine Besylate) 10 Mg Tablet 1 TAB PO DAILY for 30 Days, #30 TAB (This prescription has been renewed) Telmisartan (Telmisartan) 40 Mg Tablet 1 TAB PO DAILY for 30 Days, #30 TAB (This prescription has been renewed) Discharge Summary: History of present illness: Patient is a 69-year-old male with a history of hypertension and PUD was transferred from [facility] for further evaluation and management of NSTEMI. Patient was presented to the transferring facility for left shoulder discomfort for the past 10 days. He describes the pain as achy in nature, radiating down to his left upper quadrant, aggravated with movement and with no relieving factors. he adds that he was "experiencing an upset stomach-like feeling". He denies any shortness of breath, diaphoresis, nausea, vomiting or fever. Patient lives in [facility] with his family, denies smoking cigarettes, consuming alcohol, or using recreational drugs. His PCP is Dr. Pisano. He came from [place] seven months ago, and has not had access to primary care doctor. Hospital course: Patient was transferred from [facility] for further evaluation and management of NSTEMI. EKGs did not show any acute ischemic changes, however, his troponins were elevated. Patient initially received aspirin, NTG SL, and heparin infusion along with the other Tran MT including atorvastatin, carvedilol, and lisinopril. Subsequently, underwent Lexiscan which revealed reversible defect is present in the inferior/ lateral wall. Cardiology consulted, patient underwent coronary angiography. Two stents placed at left circumflex coronary artery. DAPT i.e. aspirin and Brilinta initiated. Discharge course: Patient is hemodynamically stable. His left shoulder pain subsided. He is able to ambulate and tolerate oral intake. He was discharged home with the following instructions: - You were hospitalized for non ST-elevation myocardial infarction, and underwent coronary angiography with placement of two stents. - Please follow these important instruction to support your recovery and prevent future cardiac events: - Continue aspirin 81 mg daily, continue indefinitely unless told otherwise. Also continue Brilinta as directed by your particleboard factory worker (for 1 year). - Avoid strenuous activity or heavy lifting > 10 lb for one week. - Follow heart healthy diet; low in saturated fat, salt, and sugar. - Follow with your particleboard factory worker within 1-2 weeks after discharge. Continue regular visits with your primary care provider the 1st one within one week. - Seek immediate care or call 911 if you develop chest pain not relieved by your medications, shortness of breath, fainting, or irregular heartbeats. Discharge physical exam: Vital Signs Date Time Temp Pulse Resp B/P (MAP) Pulse Ox O2 Delivery O2 Flow Rate FiO2 11/23/24 15:00 98.1 66 14 139/64 (89) 98 Room Air 11/23/24 08:00 0.0 21 General: Awake and Alert, no acute distress. HEENT: Conjunctiva pink, Sclera clear, Mucus Membranes moist. Neck: Supple without masses and tenderness. Resp: Unlabored. Lungs clear to auscultation bilaterally. Heart: Regular Rate and rhythm, normal S1 and S2 without murmur, rub or gallop. Abdomen: Soft and non tender no organomegaly Extremities: No cyanosis,clubbing or edema. Skin: Warm and Dry Lexiscan performed on November 22, 2024: Findings: Rotating planar images show no significant attenuation artifact. The left ventricular size is within normal limits. Reversible defect is present in the inferior/ lateral wall. The left ventricular ejection fraction is 61%. (normal greater than 50%) Impression: Reversible defect is present in the inferior/ lateral wall. This may represent artifact versus ischemia. Clinical correlation advised. The left ventricular ejection fraction is 61%. Echocardiogram performed on November 21, 2024: LV is normal in size with mild concentric hypertrophy. Overall systolic function is normal. LVEF is 70%. RV is normal size and function. Left atrium is mildly dilated. Trileaflet AV appears sclerotic without stenosis. Mild insufficiency. MV is thickened with mild annular calcification and no stenosis. The tricuspid valve is normal in structure. Trace tricuspid regurgitation. The pulmonary valve is normal in structure. Trace pulmonic regurgitation. Ascending aorta measured at 3.6 cm. There is no pericardial effusion. *Problems/Diagnosis: (1) NSTEMI (non-ST elevated myocardial infarction) Status: Acute Total Time Spent on D/C: Up to 30 Minutes Date of Service: November 23, 2024 Billing Provider: BRIAN GARCIA MD, SHAMS, RES November 23, 2024 16:58
[2024-11-24] MEDS ORDERED: pantoprazole 40mg Tablet.DR PO SCH (07:30)
== END 2024-11-23 18:01 | disposition home or self-care (01) | DRG 174 ==
LOC: ER 13:18 → ED HOLD 16:34 → PCU 3S 18:35
PROVIDERS: ADMIT Family Medicine; ATTEND Family Medicine
PROC: 027035Z Dilation of Coronary Artery, One Artery with Two Drug-eluting Intraluminal Devices, Percutaneous Approach (ICD-10-PCS; principal; 2024-11-22)
PROC: 4A023N7 Measurement of Cardiac Sampling and Pressure, Left Heart, Percutaneous Approach (ICD-10-PCS; 2024-11-22)
PROC: B2111ZZ Fluoroscopy of Multiple Coronary Arteries using Low Osmolar Contrast (ICD-10-PCS; 2024-11-22)
PROC: 4A02XM4 Measurement of Cardiac Total Activity, External Approach (ICD-10-PCS; 2024-11-22)
PROC: 3E033HZ Introduction of Radioactive Substance into Peripheral Vein, Percutaneous Approach (ICD-10-PCS; 2024-11-22)
DX: I21.4 Non-ST elevation (NSTEMI) myocardial infarction (principal); I10 Essential (primary) hypertension; R73.03 Prediabetes; K21.9 Gastro-esophageal reflux disease without esophagitis; I25.10 Atherosclerotic heart disease of native coronary artery without angina pectoris; Z87.11 Personal history of peptic ulcer disease
CPT/HCPCS: 36415; 71045; 78452; 80048; 80053; 80061; 81003; 83036; 83735; 83880; 84100; 84484; 85025; 85347; 85610; 85730; 87081; 93005; 93017; 93306; 93454; 96374; 99152; 99153; 99291; A6258; A9500; C1725; C1751; C1760; C1769; C1874; C1894; C9600; G0378; J0461; J1644; J2003; J2250; J2470; J2785; J3010; J3490; J7030; J7040; Q9967